=== PATIENT | male | born 1960 | race Caucasian/White ===

== ENCOUNTER 2024-06-12 10:48 | Emergency (ER) | payer MEDICAID ==
[2024-06-12 11:57] LABS: BASO # 0.01 K/mm3 (0.02-0.10); EOS # 0.13 K/mm3 (0.04-0.40); EOS % 1.8 % (0.0-4.0); HEMATOCRIT 33.9 % (42.0-52.0); HEMOGLOBIN 10.7 g/dL (13.5-18.0); LYMPH# 1.76 K/mm3 (1.50-4.00); MEAN CELL VOLUME 94 fl (78-100); MEAN CORPUSCULAR HEMOGLOBIN 30 pg (27-31); MEAN CORPUSCULAR HGB CONC 32 g/dL (33-37); MEAN PLATELET VOLUME 8.5 fl (7.4-10.4); MONO # 0.56 K/mm3 (0.20-0.80); NEU # 4.59 K/mm3 (1.40-6.50); PLATELET COUNT 256 K/mm3 (130-400); RED CELL DISTRIBUTION WIDTH 15.1 % (11.5-14.5); WHITE BLOOD COUNT 7.1 K/mm3 (4.8-10.8)
[2024-06-12 12:03] LABS: ALBUMIN 3.4 g/dL (3.4-4.8)
[2024-06-12 12:04] LABS: CALCIUM 9.9 mg/dL (8.3-10.5)
[2024-06-12 12:05] LABS: TOTAL PROTEIN 7.1 g/dL (6.2-8.1)
[2024-06-12] MEDS ORDERED: ATORVASTATIN CA20 MG PO (12:05)
[2024-06-12] MEDS ORDERED: OPTIMUM AC500 Millio PO (12:06)
[2024-06-12 12:07] LABS: TOTAL BILIRUBIN 0.4 mg/dL (0.2-1.2)
[2024-06-12] MEDS ORDERED: GOOD NEIGHBOR200 M1 PO (12:07)
[2024-06-12] MEDS ORDERED: LEXAPRO20 M1 PO (12:09)
[2024-06-12] MEDS ORDERED: COZAAR25 M1 PO (12:10)
[2024-06-12] MEDS ORDERED: ALLOPURINOL300 M1 PO (12:11)
[2024-06-12] MEDS ORDERED: FUROSEMIDE40 MG (12:13)
[2024-06-12] MEDS ORDERED: Lidocaine 2% Viscous 15 ML UNIT DOSE CUP MM ONE (12:15)
[2024-06-12] MEDS ORDERED: Lidocaine 2% Jelly 5 GM TUBE TOP ONE (12:25)
[2024-06-12] MEDS ORDERED: oxyCODONE/Acetaminophen 10-325 MG TAB PO ONE (12:45)
[2024-06-12] MEDS ORDERED: fentaNYL 100 MCG/2 ML VIAL IM ONE (13:30)
[2024-06-12] MEDS ORDERED: Insulin Aspart (NovoLOG) SQ ONE ×2 (13:45→15:45)
[2024-06-12] MEDS ORDERED: metroNIDAZOLE 250 MG TABLET PO ONE (16:00)
[2024-06-12] MEDS ORDERED: levoFLOXacin 250 MG TABLET PO ONE (16:00)
[2024-06-12] MEDS ORDERED: Doxycycline Monohydrate 100 MG CAP PO ONE (16:00)
[2024-06-12 16:28] VITALS: BP 132/93
== END 2024-06-12 16:33 | disposition short-term general hospital (02) ==
LOC: ED 10:48
PROVIDERS: Physician Assistant
DX: L03.116 Cellulitis of left lower limb (principal); D64.9 Anemia, unspecified; N17.9 Acute kidney failure, unspecified; E87.1 Hypo-osmolality and hyponatremia; I73.9 Peripheral vascular disease, unspecified; E11.65 Type 2 diabetes mellitus with hyperglycemia
CPT/HCPCS: J1815; J3010